=== PATIENT | female | born 1970 | race Caucasian/White ===

== ENCOUNTER 2019-10-30 12:30 | Inpatient (IN) | payer OTHER ==
[~2019-10-30] VITALS: Ht 154.9 cm; Wt 115.2 kg
[2019-10-30 12:38] VITALS: BP 113/79
--- NOTE | 2019-10-30 13:05 | NUR ---
PATIENT STATES UNABLE TO VOID AT THIS TIME
[2019-10-30 13:11] LABS: BASO % 0.4 % (0.0-1.0); EOS # 0.3 10*3/uL (0.0-0.4); EOS % 3.8 % (1.0-4.0); HEMATOCRIT 36.8 % (37.0-47.0); HEMOGLOBIN 11.8 g/dl (12.0-16.0); LYMPH # 2.6 10*3/uL (1.3-4.4); LYMPH % 37.9 % (27.0-41.0); MEAN CELL VOLUME 94.1 fl (81.0-99.0); MEAN CORPUSCULAR HGB 30.2 pg (27.0-31.0); MEAN CORPUSCULAR HGB CONC 32.1 g/dl (33.0-37.0); MEAN PLATELET VOLUME 11.2 fl (9.6-12.3); MONO # 0.5 10*3/uL (0.1-1.0); MONO % 6.9 % (3.0-9.0); NEUT # 3.5 10*3/uL (2.3-7.9); NEUT % 50.9 % (47.0-73.0); PLATELET COUNT AUTOMATED 146 10*3/uL (130-400); RED BLOOD COUNT 3.91 10*6/uL (4.10-5.10); RED CELL DISTRI WIDTH 14.6 % (0-14.5); WHITE BLOOD COUNT 6.9 10*3/uL (4.8-10.8)
[2019-10-30 13:12] VITALS: BP 93/56
[2019-10-30 13:20] LABS: ACT PARTIAL THROMBO TIME 28.1 SECONDS (20.0-32.1); INTERNATIONAL NORM RATIO 1.1 (2.0-3.5)
[2019-10-30 13:22] LABS: ALBUMIN 3.4 gm/dl (3.1-4.5); ALKALINE PHOSPHATASE 51 U/L (45-117); BUN 21 mg/dl (7-24); CHLORIDE 111 mmol/L (98-107); CREATININE 0.85 mg/dL (0.55-1.02); POTASSIUM 4.4 mmol/L (3.5-5.1); SGPT/ALT 18 U/L (12-78); SODIUM 141 mmol/L (136-145); TOTAL PROTEIN 6.6 gm/dL (6.4-8.2)
[2019-10-30 13:24] LABS: SGOT/AST < 3 IU/L (3-35); TROPONIN I < 0.015 ng/ml (<0.045)
[2019-10-30 14:15] VITALS: BP 107/59
--- NOTE | 2019-10-30 14:23 | NUR ---
PATIENT CONTINUES TO STATE SHE IS UNABLE TO PROVIDE A URINE SPECIMEN
[2019-10-30 15:13] LABS: BILIRUBIN NEGATIVE (NEGATIVE); BLOOD NEGATIVE (NEGATIVE); CLARITY CLEAR (CLEAR); COLOR YELLOW (YELLOW); GLUCOSE NEGATIVE (NEGATIVE); KETONE NEGATIVE (NEGATIVE); LEUKO ESTERASE NEGATIVE (NEGATIVE); NITRITE NEGATIVE (NEGATIVE); SPECIFIC GRAVITY 1.025 (1.005-1.030); UROBILINOGEN 0.2 E.U./dl (0.2-1.0)
--- NOTE | 2019-10-30 15:30 | NUR ---
Time: 1529 A 48 year old FEMALE admitted to 5E under services of DIANE SCHMITZ DO. Pt. arrived via bed from ER. Chief complaint: REPIRATORY ILLNESS. MUNA SANDOVAL
[2019-10-30 16:00] VITALS: BP 148/79
[2019-10-30] MEDS ORDERED: CLARITIN10 MG PO (16:15)
[2019-10-30] MEDS ORDERED: BENZTROPINE MESY1 MG PO (16:16)
[2019-10-30] MEDS ORDERED: MOBIC7.5 MG PO (16:16)
[2019-10-30] MEDS ORDERED: ALDACTONE25 MG PO (16:16)
[2019-10-30] MEDS ORDERED: LIPITOR40 MG PO (16:16)
[2019-10-30] MEDS ORDERED: DEPAKOTE500 MG PO (16:17)
[2019-10-30] MEDS ORDERED: HYDROXYZINE HCL25 MG PO (16:17)
[2019-10-30] MEDS ORDERED: TOPROL XL50 M1 PO (16:18)
[2019-10-30] MEDS ORDERED: RISPERDAL2 M1 PO (16:18)
[2019-10-30] MEDS ORDERED: MUCINEX1200 M1 PO (16:18)
[2019-10-30] MEDS ORDERED: RISPERDAL1 M1 PO (16:18)
[2019-10-30] MEDS ORDERED: ALBUTEROL S5 MG/1 ML INH (16:19)
[2019-10-30 20:00] VITALS: BP 119/62
--- NOTE | 2019-10-30 21:10 | NUR ---
PATIENT MEDICATED WITH TYLENOL FOR COMPLAINTS OF MUSCLE CRAMPS AND STOMACH PAINS. RN WILL MONITOR FOR EFFECTIVENESS
[2019-10-31] VITALS: BP 110/61
[2019-10-31 06:57] LABS: BASO % 0.2 % (0.0-1.0); EOS % 0.1 % (1.0-4.0); HEMATOCRIT 35.8 % (37.0-47.0); HEMOGLOBIN 11.4 g/dl (12.0-16.0); LYMPH # 1.5 10*3/uL (1.3-4.4); LYMPH % 12.2 % (27.0-41.0); MEAN CELL VOLUME 91.8 fl (81.0-99.0); MEAN CORPUSCULAR HGB 29.2 pg (27.0-31.0); MEAN CORPUSCULAR HGB CONC 31.8 g/dl (33.0-37.0); MEAN PLATELET VOLUME 11.8 fl (9.6-12.3); MONO % 8.3 % (3.0-9.0); NEUT # 9.7 10*3/uL (2.3-7.9); NEUT % 78.9 % (47.0-73.0); PLATELET COUNT AUTOMATED 167 10*3/uL (130-400); RED CELL DISTRI WIDTH 14.4 % (0-14.5); WHITE BLOOD COUNT 12.3 10*3/uL (4.8-10.8)
[2019-10-31 07:09] LABS: BUN 30 mg/dl (7-24); CHLORIDE 105 mmol/L (98-107); CHOLESTEROL 124 mg/dL (<200); CREATININE 1.03 mg/dL (0.55-1.02); HDL CHOLESTEROL 34 mg/dl (40-60); LDL CHOLESTEROL 71 mg/dL (9-159); PHOSPHOROUS 4.4 mg/dL (2.5-4.9); POTASSIUM 4.5 mmol/L (3.5-5.1); SODIUM 138 mmol/L (136-145); TRIGLYCERIDES 95 mg/dl (<150); VLDL CHOLESTEROL 19 mg/dL (6-40)
[2019-10-31 07:15] LABS: THYROID STIM HORMONE (HS) 0.536 uIU/ml (0.358-4.75)
[2019-10-31 08:00] VITALS: BP 124/61
--- NOTE | 2019-10-31 08:17 | NUR ---
PT MEDICATED WITH TYLENOL AT THIS TIME UPON REQUEST FOR COMPLAINTS OF PAIN IN LEGS. WILL MONITOR.
--- NOTE | 2019-10-31 09:15 | NUR ---
PER PATIENT, PRN MEDICATION HAS BEEN EFFECTIVE. NO FURTHER COMPLAINTS.
--- NOTE | 2019-10-31 10:30 | NUR ---
Acid Pump Operator in to talk to patient. Patient states lives at home alone. There are 0 steps in the home. Physician: she would like to follow in the resident clinic. She was previously being seen at the [facility]. [facility] Home health services: none Patient's level of ADLs: INDEPENDENT Patient has working utilities: yes DME: none Follow-up physician's appointment after d/c: will be made by the hospitalist nurse director upon discharge Does patient want to access PORTAL?: no Discharge plan discussed with patient. She lives at home alone. She is independent in her ADLs and ambulation. Discussed home health care services and she denies any home needs at this time. She is concerned she may need O2 at home. Explained if needed the physicians can order a home O2 assessment and she verbalized an understanding. When medically stable she will be discharged to home. She states she will have a cab transport. TYSON BURROUGHS
[2019-10-31 12:00] VITALS: BP 128/54
--- NOTE | 2019-10-31 13:30 | NUR ---
PATIENT MEDICATED WITH TYLENOL UPON REQUEST FOR COMPLAINTS OF PAIN IN BACK, WILL MONITOR FOR EFFECTIVENESS.
--- NOTE | 2019-10-31 14:25 | NUR ---
PER PATIENT, PRN MEDICATION HAS BEEN EFFECTIVE. NO FURTHER COMPLAINTS.
[2019-10-31 16:00] VITALS: BP 116/57
--- NOTE | 2019-10-31 16:55 | NUR ---
PT MEDICATED WITH TYLENOL AT THIS TIME FOR COMPLAINTS OF PAIN IN BACK 04/25, WILL MONITOR FOR EFFECTIVENESS.
[2019-10-31 20:00] VITALS: BP 162/97
[2019-10-31 20:24] VITALS: BP 120/60
--- NOTE | 2019-10-31 20:24 | NUR ---
PATIENT IS RESTING IN BED WITH EASY AND REGULAR RESPERS ON 2L O2 VIA NC. ASSESSMENT IS COMPLETE WITH NO C/O OR S/S OF DISTRESS NOTED AT THIS TIME. BED IS LOW, LOCKED, AND CALL LIGHT IS WITHIN REACH. BLOOD PRESSURE RECHECKED 120/60 RADIAL PULSE 100. WILL CONTINUE TO MONITOR, SEE SHIFT ASSESSMENT.
[2019-11-01] VITALS: BP 118/63; BP 141/72
[2019-11-01 09:51] VITALS: BP 88/50
--- NOTE | 2019-11-01 09:55 | NUR ---
DR GRIGGS NOTIFIED THAT PT BP MANUALLY IS 88/50, HR IS 70. ORDERS RECEIVED TO HOLD DIURETICS/BP MEDS AT THIS TIME AND RE CHECK PT IN ONE HOUR. WILL MONITOR AND RECHECK.
--- NOTE | 2019-11-01 10:30 | NUR ---
Home Theater Experience Expert in to see patient. No new needs or request at this time. She denies any home needs. When medically stable she will be discharged to home.
[2019-11-01 10:50] VITALS: BP 90/50
--- NOTE | 2019-11-01 11:30 | NUR ---
OT EVALUATION COMPLETED. OT EVAL ONLY QUINTON WILLIAMSON, OTR/L, CLT
[2019-11-01 12:00] VITALS: BP 115/78
[2019-11-01] MEDS ORDERED: LASIX40 MG PO (13:03)
[2019-11-01] MEDS ORDERED: LOSARTAN POTASS25 M1 PO (13:03)
--- NOTE | 2019-11-01 15:08 | NUR ---
PT GIVEN TYLENOL AT THIS TIME FOR C/O HEADACHE.
--- NOTE | 2019-11-01 15:30 | NUR ---
Discharge instructions reviewed with patient/family. Patient receptive and verbalizes understanding. Follow-up care arranged. Written instructions given to patient/family. LOLA TAM
== END 2019-11-01 15:30 | disposition home or self-care (01) | DRG 194 ==
LOC: ED 12:30 → 5E 13:43 → EDHOLD 13:43 → 5E 14:26
PROVIDERS: Emergency Medicine; Internal Medicine; ADMIT Family Medicine
DX: I50.41 Acute combined systolic (congestive) and diastolic (congestive) heart failure (principal); D64.9 Anemia, unspecified; E87.8 Other disorders of electrolyte and fluid balance, not elsewhere classified; F17.210 Nicotine dependence, cigarettes, uncomplicated; E66.01 Morbid (severe) obesity due to excess calories; E44.0 Moderate protein-calorie malnutrition; I25.10 Atherosclerotic heart disease of native coronary artery without angina pectoris; J44.9 Chronic obstructive pulmonary disease, unspecified; F31.9 Bipolar disorder, unspecified; E78.5 Hyperlipidemia, unspecified; I25.2 Old myocardial infarction; Z95.810 Presence of automatic (implantable) cardiac defibrillator; Z71.6 Tobacco abuse counseling; Z68.42 Body mass index [BMI] 45.0-49.9, adult; Z95.1 Presence of aortocoronary bypass graft; Z88.6 Allergy status to analgesic agent; Z88.0 Allergy status to penicillin; J96.00 Acute respiratory failure, unspecified whether with hypoxia or hypercapnia